=== PATIENT | female | born 1945 | race Caucasian/White ===

== ENCOUNTER 2018-10-14 19:08 | Emergency (ER) | payer MEDICARE, OTHER ==
[2018-10-14] MEDS: DIPHTH/TET/ACEL PERTUSS (ADULT) 0.5 ML VIAL IM* (20:33)
[2018-10-14] MEDS: LIDOCAINE 4% CR TOP (20:33)
[2018-10-14] MEDS: LIDOCAINE 1% (MDV) 10 ML INJ INJ (20:52)
[2018-10-14] MEDS: LIDOCAINE 1% (MDV) 20 ML INJ INJ (20:52)
== END 2018-10-14 22:05 | disposition home or self-care (01) ==
LOC: FTE 19:08
DX: S01.81XA Laceration without foreign body of other part of head, initial encounter (principal); X58.XXXA Exposure to other specified factors, initial encounter; Y92.002 Bathroom of unspecified non-institutional (private) residence as the place of occurrence of the external cause; Z23 Encounter for immunization; Z87.891 Personal history of nicotine dependence
CPT/HCPCS: 12013; 70450; 90471; 90715; 99283-25

== ENCOUNTER 2018-10-19 12:23 | Emergency (ER) | payer MEDICARE, OTHER | END 2018-10-19 14:37 | disposition home or self-care (01) | LOC: FTE 12:23 | DX: Z48.02 Encounter for removal of sutures (principal); Z87.891 Personal history of nicotine dependence | CPT/HCPCS: 99281 ==